=== PATIENT | female | born 1985 | race Caucasian/White ===

== ENCOUNTER 2018-06-10 16:13 | Emergency (ER) | payer MEDICAID, OTHER ==
[2018-06-10 16:22] VITALS: BP 122/75; PULSE 90; RESP 18; TEMP 98.5; O2SAT 100
--- NOTE | 2018-06-10 16:46 | C.PDOC ---
- HPI Time Seen by Provider: 06/10/18 16:25 Chief Complaint (Nursing): Trauma Past Medical History Vital Signs: Last Vital Signs Temp 98.5 F 06/10/18 16:21 Pulse 90 06/10/18 16:21 Resp 18 06/10/18 16:21 BP 122/75 06/10/18 16:21 Pulse Ox 100 06/10/18 16:21 - [facility] Procedures INJECT/INFUSE NEC (05/21/13) - Social History Hx Alcohol Use: No Hx Substance Use: No ED Course And Treatment O2 Sat by Pulse Oximetry: 100 Disposition - Disposition
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
[2018-06-10] MEDS ORDERED: Bacitracin 500 Units/gm Oint Foilpak UD ONE (18:30)
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
== END 2018-06-10 18:39 | disposition home or self-care (01) ==
LOC: C.ER 16:13
DX: S60.221A Contusion of right hand, initial encounter (principal); S90.31XA Contusion of right foot, initial encounter; S50.812A Abrasion of left forearm, initial encounter; Y08.89XA Assault by other specified means, initial encounter